=== PATIENT | female | born 1990 | race African-American/Black ===

== ENCOUNTER → 2018-03-05 | Emergency (ER) | payer MEDICAID, SELFPAY | LOC: BURERS 16:50 | DX: H10.9 Unspecified conjunctivitis (principal) | CPT/HCPCS: 99282 ==

== ENCOUNTER 2019-07-15 13:44 | Emergency (ER) | payer OTHER | END 2019-07-15 14:17 | disposition home or self-care (01) | LOC: BURERS 13:44 | DX: J11.1 Influenza due to unidentified influenza virus with other respiratory manifestations (principal) | CPT/HCPCS: 99283 ==